=== PATIENT | male | born 1980 | race Caucasian/White ===

== ENCOUNTER 2024-10-24 07:25 | Inpatient (IN) | payer BC, SELFPAY ==
--- NOTE | ~2024-10-24 | CT_ITS ---
EXAMINATION: CT abdomen pelvis w con DATE: 10/24/2024 08:29 INDICATION: Right lower quadrant abdominal pain. TECHNIQUE: Computed tomography (CT) of the abdomen and pelvis was performed with 100 mL Omnipaque 350 intravenous contrast. Automated exposure control and iterative reconstruction technique were employe d. The dose-length product was 1324.05 mGy-cm. COMPARISON: CT abdomen and pelvis 10/08/2009 FINDINGS: The visualized portions of the lung bases demonstrate mild atelectasis. No pleural effusion . The heart size is normal. No pericardial effusion. There is diffuse hepatic steatosis. The gallblad grazyna, spleen, pancreas, adrenal glands, and right kidney are normal. There is a 9 mm cyst in left kidn ey. The prostate is mildly enlarged. There is a left inguinal hernia containing fat. There are scatte red diverticula in the colon. There is wall thickening of the sigmoid colon with surrounding fat stra nding, consistent with diverticulitis. There are no dilated loops of bowel. The appendix is normal. T here are no pathologically enlarged lymph nodes. There is a 5.8 x 1.2 x 0.9 cm perisigmoid abscess. V ertebral body heights are normal. There is a chronic compression fracture of L1. There is mild lumbar spondylosis. IMPRESSION: 1. Acute diverticulitis with small perisigmoid abscess. No perforation. Reviewed, dictated and finalized at location B.
[2024-10-24 07:28] VITALS: BP 184/104; PULSE 80; RESP 18; TEMP 36.6; O2SAT 97
--- OUTSIDE RECORDS SUMMARY | 2024-10-24 07:29 | XMS_ITS | Clinical Summary ---
Author Organization [facility] Address [address] [place] [id number] Care Team Providers Care Field Service Engineer Name Role Phone Unavailable Primary Care Provider Unavailabl e Social History Tobacco Use Types Packs/Day Years Used Date Smoking Tobacco: Never Assessed Sex and Gender Information Value Date Recorded Sex Assigned at Not on file Legal Sex Male 11:03 PM CDT Gender Identity Not on file Sexual Orientation Not on file Plan of Treatment Health Maintenance Due Date Last Done Comments Hepatitis C Virus (HCV) Screening 1981 TdaP Immunization 1981 Hepatitis B Immunization (1 of 3 - 19+ 3-dose series) 2000 Influenza Immunization (#1) 2024 SARS-COV-2 Immunization ( - 2023- season) 2024 Respiratory Syncytial Virus (RSV) Immunization (Adult) (1 - 1-dose 75+ series) 2056 Meningococcal Immunization (ACWY) Aged Out No longer eligible based on patient's age to complete this topic Pneumococcal Immunization Combined Aged Out No longer eligible based on patient's age to complete this topic Rotavirus Immunization Aged Out No lo nger eligible based on patient's age to complete this topic
[2024-10-24 07:49] LABS: Basophils Absolute Auto 0.1 K/mm3 (0.0-0.1); Basophils Percent Auto 0.4 % (0.2-1.2); Eosinophils Absolute Auto 0.1 K/mm3 (0-0.3); Eosinophils Percent Auto 0.4 % (0-4.4); Hematocrit 49.5 % (42.0-52.0); Hemoglobin 16.5 g/dL (14.0-18.0); Immature Granulocyte Absolute 0.06 K/mm3 (0.00-0.031); Immature Granulocyte Percent A 0.4 % (0-0.5); Lymphocytes Absolute Auto 1.18 K/mm3 (0.9-3.2); Lymphocytes Percent Auto 8.4 % (18.3-44.2); Mean Corpuscular HGB Conc 33.3 g/dl (32-36); Mean Corpuscular Hemoglobin 30.8 pg (26-34); Mean Corpuscular Volume 92.4 fl (80-100); Mean Platelet Volume 9.6 fl (7.4-10.4); Monocytes Absolute Auto 1.2 K/mm3 (0.1-0.6); Monocytes Percent Auto 8.3 % (2.6-8.5); Neutrophils Absolute Auto 11.5 K/mm3 (1.3-6.7); Neutrophils Percent Auto 82.1 % (45.5-73.1); Platelet Count Result 269 k/mm3 (150-375); Red Blood Count 5.36 M/mm3 (4.6-6.20)
[2024-10-24 07:55] LABS: Add Urine Microscopic? YES; Appearance Urine Clear (Clear); Bacteria Urine None Seen /hpf; Bilirubin Urine Negative (Negative); Blood Urine 1+ (Negative); Color Urine Yellow (Yellow); Glucose Urine UA Negative (Negative); Ketones Urine Negative (Negative); Leukocyte Esterase Ur Negative LEU/UL (Negative); Nitrate Urine Negative (Negative); Non Pathogenic Casts 0-2; Protein Urine Negative (Negative); Specific Grav Ur 1.016 (1.001-1.035); Squamous Epithelial Cell Urine None Seen /hpf (Few); WBC Urine 0-5 /hpf (0-3); pH Urine 7.5 (5.0-9.0)
--- OUTSIDE RECORDS SUMMARY | 2024-10-24 08:09 | XMS_ITS | Clinical Summary ---
Author Organization [facility] Address [address] [place] [id number] Care Team Providers Care Cosmetologist Apprentice Name Role Phone Unavailable Primary Care Provider [...]
[2024-10-24 08:10] LABS: Alanine Aminotransferase 45 U/L (6-50); Albumin Level 4.5 g/dL (3.5-5.1); Alkaline Phosphatase 66 U/L (38-126); Anion Gap 10 mmol/L (4-12); Aspartate Amino Transferase 24 U/L (17-59); Bilirubin,Total 1.9 mg/dL (0.2-1.3); Blood Urea Nitrogen 9 mg/dL (9-20); Calcium 9.7 mg/dL (8.4-10.2); Carbon Dioxide 24 mmol/L (22-30); Chloride 104 mmol/L (98-107); Estimated CRCL calculation 121 ml/min; Estimated Glomerular Filt Rate > 60; Glucose 127 mg/dL (65-110); Lipase 62 U/L (23-300); Potassium 4.4 mmol/L (3.4-5.0); Sodium 138 mmol/L (137-145)
[2024-10-24] MEDS: SODIUM CHLORIDE 0.9% IV 1,000 ML 999 ML IV CONT (08:32)
[2024-10-24] MEDS: ONDANSETRON INJ 4 MG/2 ML VIAL IV PUSH (08:33)
[2024-10-24] MEDS: HYDROmorphone HCL INJ (*CRX) 1 MG/ML SYR IV PUSH ×2 (08:33→19:56)
--- NOTE | 2024-10-24 09:06 | ED.GENADULT ---
HPI - General Adult General Chief complaint: Abdominal Pain Stated complaint: abdominal pain Time Seen by Provider: 10/24/24 07:38 History of Present Illness HPI narrative: This is a 43-year-old male with no medical history presenting for abdominal pain. Symptoms started 2 days ago. It is a sharp pain across the patient's lower abdomen worse in the right quadrant. It is associated with bloating and loose stools. Patient denies fevers chills nausea vomiting. No urinary symptoms. No chest pain or difficulty breathing. Related Data Allergies Allergy/AdvReac Type Severity Reaction Status Date / Time Penicillins Allergy Mild Rash Verified 10/24/24 08:32 [facility] Past Medical History Medical History Shingles Surgical History Surgical History History of vasectomy (~2010) Family History Family History Grandparent Cancer Social History Social History Smoking packs per day: 1 Smoking cigarettes per day: 20.0 Years smoked: 18 Smoking pack-years: 18.00 Smoking status: Former smoker Exam Narrative: APPEARANCE: No apparent distress. Head: atraumatic. EYES: EOMI, NOSE: Atraumatic NECK: Trachea midline RESPIRATORY: No increased rate of breathing, CTAB CARDIOVASCULAR: RRR, no peripheral edema ABDOMINAL: Tenderness to palpation diffusely but worse in the right lower quadrant MUSCULOSKELETAl: No obvious deformities NEURO: Alert. Moving 4/4 extremities SKIN:: Warm, dry. Normal color PSYCHIATRIC: Normal affect Course Vital Signs Vital signs: Vital Signs Temperature 97.8 F 10/24/24 07:28 Pulse Rate 80 10/24/24 07:28 Respiratory Rate 18 10/24/24 07:28 Blood Pressure 184/104 H 10/24/24 07:28 Pulse Oximetry 97 10/24/24 07:28 Oxygen Delivery Room Air 10/24/24 07:28 Temperature 97.8 F 10/24/24 07:28 Pulse Rate 80 10/24/24 07:28 Respiratory Rate 18 10/24/24 07:28 Blood Pressure 184/104 H 10/24/24 07:28 Pulse Oximetry 97 10/24/24 07:28 Oxygen Delivery Room Air 10/24/24 07:28 Medical Decision Making [facility] Narrative Medical decision making narrative: -Course: 43-year-old male presenting with abdominal pain. CT showed diverticulitis with a perisigmoid abscess. White count elevated at 14. Patient given fluid resuscitation and antibiotics. I discussed IR drainage with Dr. Singh. The abscess is long and thin and while he would attempt to drain it if required its unclear if it is needed at this point. surgery consulted. Patient will be admitted for further management. -DDX includes but is not limited to: Appendicitis, diverticulitis, colitis, cholecystitis -Co-morbidities complicating care: None Vital Signs Vital Signs: Vital Signs Temperature 97.8 F 10/24/24 07:28 Pulse Rate 80 10/24/24 07:28 Respiratory Rate 18 10/24/24 07:28 Blood Pressure 184/104 H 10/24/24 07:28 Pulse Oximetry 97 10/24/24 07:28 Oxygen Delivery Room Air 10/24/24 07:28 Temperature 97.8 F 10/24/24 07:28 Pulse Rate 80 10/24/24 07:28 Respiratory Rate 18 10/24/24 07:28 Blood Pressure 184/104 H 10/24/24 07:28 Pulse Oximetry 97 10/24/24 07:28 Oxygen Delivery Room Air 10/24/24 07:28 Lab Data 10/24/24 07:42 10/24/24 07:42 Labs: Lab Results 10/24/24 Range/Units 07:42 WBC 14.0 H (4.5-10.0) K/mm3 RBC 5.36 (4.6-6.20) M/mm3 Hgb 16.5 (14.0-18.0) g/dL Hct 49.5 (42.0-52.0) % MCV 92.4 (80-100) fl MCH 30.8 (26-34) pg MCHC 33.3 (32-36) g/dl RDW 13.0 (11.5-14.5) % Plt Count 269 (150-375) k/mm3 MPV 9.6 (7.4-10.4) fl Immature Gran % (Auto) 0.4 (0-0.5) % Neut % (Auto) 82.1 H (45.5-73.1) % Lymph % (Auto) 8.4 L (18.3-44.2) % [place] % (Auto) 8.3 (2.6-8.5) % Eos % (Auto) 0.4 (0-4.4) % Baso % (Auto) 0.4 (0.2-1.2) % Lymph # (Auto) 1.18 (0.9-3.2) K/mm3 [place] # (Auto) 1.2 H (0.1-0.6) K/mm3 Eos # (Auto) 0.1 (0-0.3) K/mm3 Baso # (Auto) 0.1 (0.0-0.1) K/mm3 Abs Immat Gran (auto) 0.06 H (0.00-0.031) K/mm3 Absolute Neuts (auto) 11.5 H (1.3-6.7) K/mm3 Absolute Nucleated RBC 0.000 (0.0-0.012) K/mm3 Nucleated RBC % 0.0 (0.0-0.2) % Sodium 138 (137-145) mmol/L Potassium 4.4 (3.4-5.0) mmol/L Chloride 104 (98-107) mmol/L Carbon Dioxide 24 (22-30) mmol/L Anion Gap 10 (4-12) mmol/L BUN 9 (9-20) mg/dL Creatinine 0.94 (0.7-1.3) mg/dL Estim Creat Clear Calc 121 ml/min Estimated GFR > 60 (59 - ) Glucose 127 H (65-110) mg/dL Calcium 9.7 (8.4-10.2) mg/dL Total Bilirubin 1.9 H (0.2-1.3) mg/dL AST 24 (17-59) U/L ALT 45 (6-50) U/L Alkaline Phosphatase 66 (38-126) U/L Total Protein 8.0 (6.3-8.2) g/dL Albumin 4.5 (3.5-5.1) g/dL Lipase 62 (23-300) U/L Urine Color Yellow (Yellow) Urine Appearance Clear (Clear) Urine pH 7.5 (5.0-9.0) Ur Specific [place] 1.016 (1.001-1.035) Urine Protein Negative (Negative) mg/dL Urine Glucose (UA) Negative (Negative) mg/dL Urine Ketones Negative (Negative) mg/dL Ur Blood (Man) 1+ H (Negative) Urine Nitrate Negative (Negative) Urine Bilirubin Negative (Negative) Urine Urobilinogen 1.0 (<2.0) mg/dL Leukocyte Esterase Rfl Negative (Negative) SOFY/UL Urine RBC 11-20 H (0-2) /hpf Urine WBC 0-5 (0-3) /hpf Ur Squamous Epith Cells None seen (Few) /hpf Urine Bacteria None seen /hpf Urine Casts 0-2 Discharge Plan Discharge Clinical Impression: Diverticulitis, Abscess of sigmoid colon due to diverticulitis Patient Disposition: Still a Patient Condition: Stable Patient Language: Brazilian Prescriptions: No Action cholecalciferol (vitamin D3) 1,250 mcg (50,000 unit) capsule 1,250 mcg PO WEEKLY Qty: 12 1RF Follow-up/Referrals: UNKNOWN,DOCTOR [Primary Care Provider] -
[2024-10-24 09:14] VITALS: BP 148/98; PULSE 72; RESP 15; O2SAT 98
[2024-10-24] MEDS: LACTATED RINGERS 1,000 ML 125 ML IV CONT ×2 (09:31→19:59)
[2024-10-24] MEDS: metroNIDAZOLE 500 MG/ISO 100ML 500 MG/100 ML BAG 100 MG IVPB ×2 (09:31→15:28)
[2024-10-24 10:43] VITALS: BP 160/100; PULSE 98; RESP 17; O2SAT 98
[2024-10-24 11:48] VITALS: BMI 34.7
--- NOTE | 2024-10-24 11:48 | ADMGEN ---
This patient, Bryant Gutierrez, was admitted to [facility] Surg Room 330-01. Patient/family oriented to hospital policies and general routines including ID bracelet, bed and alarms, visiting hours, pain management, procedures, bathroom and other care routines, personal items, smoking policy, room service/diet, and visiting hours. Information on how to activate the Rapid Response Team has been discussed. Patient/Family are encouraged to report perceived risks to care and to ask questions if they do not understand what they are told or what they should do.
[2024-10-24 12:00] VITALS: BP 154/96; PULSE 70; RESP 16; TEMP 36.4; O2SAT 97
--- NOTE | 2024-10-24 12:50 | P.CONGS_ITS ---
Assessment and Plan Assessment and plan (1) Abscess of sigmoid colon due to diverticulitis: Code(s): K57.20 - Diverticulitis of large intestine with perforation and abscess without bleeding Status: Acute Assessment and Plan: CT evidence of acute diverticulitis of the sigmoid colon with a very narrow perisigmoid abscess. He is diffusely tender across the lower abdomen, but with no peritoneal signs. No evidence of free intraperitoneal air or indication for urgent surgical intervention at this time. We would recommend to continue broad- spectrum IV antibiotics, bowel rest, and IV fluids. Discussed the risks of requiring percutaneous drainage if he develops more of an abscess that would need drained. We also discussed that if this disease process worsens while on antibiotics and he were to develop signs of sepsis or peritonitis, then surgical management would be considered, which comes with an increased risk of requiring an ostomy when done in the acute phase of diverticulitis. Will continue to follow with serial abdominal exams and labs. Plan I have discussed the patient's case and plan of care with Dr. Mercado. History of Present Illness Consult details Consult date: 10/24/24 Reason for consult: other (Diverticulitis with abscess) Requesting physician: Dusty Varghese MD Narrative: This is a 43-year-old man who we have been asked to see in surgical consultation for diverticulitis with abscess. He presented to the ED today with complaints of lower abdominal pain. He reports an onset of cramping pain 2 days ago. He woke up around 5:00 a.m. with generalized cramping abdominal pain. He he had a bowel movement with lower abdominal pain following. Denies any recent constipation or change in his bowels. Into the following day, he noticed more tenderness across his lower abdomen. This was aggravated by any movement or bending. He also reports bloating, but no nausea or vomiting. Denies fever or chills. His recently had a cholecystectomy and he was concerned he had an intra-abdominal process, therefore he came into the ED today due to his persistent abdominal tenderness. Workup in the [place] [id number] evidence of acute diverticulitis with a small perisigmoid abscess, no perforation. He was admitted in this setting and started on IV ceftriaxone and metronidazole. His pain improved with Dilaudid in the ED, but feels it is starting to return as the pain medication is wearing off. No nausea. He reports flatus and had a bowel movement yesterday that was a small amount and loose with some mucus. No history of diverticulitis. No previous colonoscopies. No previous abdominal surgery. Review of Systems 2 Review of Systems: All systems reviewed & are unremarkable except as noted in HPI and below [facility] Past Medical History Medical History Shingles Surgical History Surgical History History of vasectomy (~2010) Family History Family History Grandparent Cancer Social History Social History Smoking packs per day: 1 Smoking cigarettes per day: 20.0 Years smoked: 18 Smoking pack-years: 18.00 Smoking status: Former smoker Alcohol intake: current Drinks per week: 12 Substance use: never Substance use type: does not use Do You Feel Safe in your Home?: Yes Lack of Transportation: No Lack of Food: Never True Current Housing: I Have Housing Concerned About Future Housing: No Difficulty Paying Gas/Electric Bills: No Difficulty Paying for Meds: No Currently Unemployed: No Education: Associate Degree Difficulty w/ Childcare or Family Care: No Spiritual care concerns: No Meds Home Medications and Allergies Home Medications ?Medication ?Instructions ?Recorded ?Confirmed ?Type No Home Medications 10/24/24 10/24/24 History Allergies Allergy/AdvReac Type Severity Reaction Status Date / Time Penicillins Allergy Mild Rash Verified 10/24/24 08:32 Vital Signs Vital Signs - 24 hr 10/24/24 07:28 10/24/24 09:14 10/24/24 10:43 Temperature 97.8 F Pulse Rate 80 72 98 Respiratory Rate 18 15 17 Blood Pressure 184/104 H 148/98 H 160/100 H Pulse Oximetry 97 98 98 Oxygen Delivery Room Air 10/24/24 12:00 Temperature 97.5 F L Pulse Rate 70 Respiratory Rate 16 Blood Pressure 154/96 H Pulse Oximetry 97 Oxygen Delivery Exam 2 Const: General: comfortable and no acute distress Nutritional Appearance: o verweight Orientation/consciousness: patient oriented x3 HENMT: Head: normocephalic and atraumatic Ears: hearing grossly normal bilaterally Mouth: Yes moist mucous membranes Eyes: General: appearance normal, both eyes and all related structures P upils: Equal, round and reactive pupils present Neck: Neck: normal visual inspection and full ROM Resp: Effort & Inspection: no respiratory distress Auscultation: clear to auscultation bilaterally Cardio: Rate: regular rate Rhythm: regular rhythm Peripheral pulses: P eripheral pulses 2+ throughout GI: Inspection: non-distended, no scars and no visible herniation GI Palp: Yes Soft to palpation, Yes Tenderness to palpation present (GI) (Tenderness across the lower abdomen and right upper quadrant), No Guarding due to palpation present (GI), Yes No hepatosplenomegaly present and No Rebound tenderness present Percussion: Yes normal to percussion Auscultation: normal bowel sounds Skin: General skin exam: normal color Neuro: General: moves all extremities and no focal motor deficits Speech: n ormal speech Motor exam (neuro): 5/5 motor strength present throughout Extrem: General: normal to inspection and no edema Psych: Mental Status: mental status grossly normal Attitude: cooperative Insight: Good insight present (Psych) Judgement: Good judgement present (Psych) Results Labs 10/24/24 07:42 10/24/24 07:42 Labs: Abnormal lab results 10/24/24 Range/Units 07:42 WBC 14.0 H (4.5-10.0) K/mm3 Neut % (Auto) 82.1 H (45.5-73.1) % Lymph % (Auto) 8.4 L (18.3-44.2) % [place] # (Auto) 1.2 H (0.1-0.6) K/mm3 Abs Immat Gran (auto) 0.06 H (0.00-0.031) K/mm3 Absolute Neuts (auto) 11.5 H (1.3-6.7) K/mm3 Glucose 127 H (65-110) mg/dL Total Bilirubin 1.9 H (0.2-1.3) mg/dL Ur Blood (Man) 1+ H (Negative) Urine RBC 11-20 H (0-2) /hpf Diabetes panel 10/24/24 Range/Units 07:42 Sodium 138 (137-145) mmol/L Potassium 4.4 (3.4-5.0) mmol/L Chloride 104 (98-107) mmol/L Carbon Dioxide 24 (22-30) mmol/L BUN 9 (9-20) mg/dL Creatinine 0.94 (0.7-1.3) mg/dL Glucose 127 H (65-110) mg/dL Calcium 9.7 (8.4-10.2) mg/dL AST 24 (17-59) U/L ALT 45 (6-50) U/L Alkaline Phosphatase 66 (38-126) U/L Total Protein 8.0 (6.3-8.2) g/dL Albumin 4.5 (3.5-5.1) g/dL Calcium panel 10/24/24 Range/Units 07:42 Calcium 9.7 (8.4-10.2) mg/dL Albumin 4.5 (3.5-5.1) g/dL Pituitary panel 10/24/24 Range/Units 07:42 Sodium 138 (137-145) mmol/L Potassium 4.4 (3.4-5.0) mmol/L Chloride 104 (98-107) mmol/L Carbon Dioxide 24 (22-30) mmol/L BUN 9 (9-20) mg/dL Creatinine 0.94 (0.7-1.3) mg/dL Glucose 127 H (65-110) mg/dL Calcium 9.7 (8.4-10.2) mg/dL Adrenal panel 10/24/24 Range/Units 07:42 Sodium 138 (137-145) mmol/L Potassium 4.4 (3.4-5.0) mmol/L Chloride 104 (98-107) mmol/L Carbon Dioxide 24 (22-30) mmol/L BUN 9 (9-20) mg/dL Creatinine 0.94 (0.7-1.3) mg/dL Glucose 127 H (65-110) mg/dL Calcium 9.7 (8.4-10.2) mg/dL Total Bilirubin 1.9 H (0.2-1.3) mg/dL AST 24 (17-59) U/L ALT 45 (6-50) U/L Alkaline Phosphatase 66 (38-126) U/L Total Protein 8.0 (6.3-8.2) g/dL Albumin 4.5 (3.5-5.1) g/dL All other labs normal. Imaging Additional studies: ITS Impressions Abdomen/Pelvis CT 10/24/24 08:34 IMPRESSION: 1. Acute diverticulitis with small perisigmoid abscess. No perforation.
--- NOTE | 2024-10-24 13:20 | PM.IMHP ---
H&P: HPI History of Present Illness Date/Time: 10/24/24 13:20 Chief Complaint: Abdominal pain Narrative: 43-year-old no prior medical history presents the hospital with abdominal pain. His lab work in the ED shows leukocytosis of 14.0, total bilirubin of 1.9, UA noninfective. CT abdomen shows acute diverticulitis with small perisigmoid abscess. General surgery was consulted Review of Systems Review of Systems: 12 systems were reviewed and are negative except for as per HPI. [facility] Past Medical History Medical History Shingles Surgical History Surgical History History of vasectomy (~2010) Family History Family History Grandparent Cancer Social History Social History Smoking packs per day: 1 Smoking cigarettes per day: 20.0 Years smoked: 18 Smoking pack-years: 18.00 Smoking status: Former smoker Alcohol intake: current Drinks per week: 12 Substance use: never Substance use type: does not use Do You Feel Safe in your Home?: Yes Lack of Transportation: No Lack of Food: Never True Current Housing: I Have Housing Concerned About Future Housing: No Difficulty Paying Gas/Electric Bills: No Difficulty Paying for Meds: No Currently Unemployed: No Education: Associate Degree Difficulty w/ Childcare or Family Care: No Spiritual care concerns: No Meds Home Medications and Allergies Home Medications ?Medication ?Instructions ?Recorded ?Confirmed ?Type No Home Medications 10/24/24 10/24/24 History Allergies Allergy/AdvReac Type Severity Reaction Status Date / Time Penicillins Allergy Mild Rash Verified 10/24/24 08:32 Vital Signs Vital Signs - 24 hr 10/24/24 07:28 10/24/24 09:14 10/24/24 10:43 Temperature 97.8 F Pulse Rate 80 72 98 Respiratory Rate 18 15 17 Blood Pressure 184/104 H 148/98 H 160/100 H Pulse Oximetry 97 98 98 Oxygen Delivery Room Air 10/24/24 12:00 Temperature 97.5 F L Pulse Rate 70 Respiratory Rate 16 Blood Pressure 154/96 H Pulse Oximetry 97 Oxygen Delivery Exam Narrative: General: well appearing, appears stated age. HEENT: normocephalic, atraumatic. Mucous membranes moist. EOMI, PERRLA, bilateral sclera anicteric, no conjunctival injection. Neck supple without JVD, lymphadenopathy, or bruit. Respiratory: clear to ascultation bilaterally. No rales/rhonic/wheezes. Cardiovascular: Regular rate and rhythm, normal S1-S2 upon ascultation. No murmurs, rubs, or clicks. PMI is nondisplaced, capillary refill less than 3 second. Abdomen: Soft, round, no pulsatile masses, nondistended and nontender. No rebound, no guarding. No CVA tenderness, no hepatosplenomegaly. Bowel sounds present to all four quadrants. No high pitch or tinkling sounds, resonant to percussion. Extremities: No cyanosis, clubbing, or edema present. Pulses are palpable 2/2. Active ROM to all four extremities. Neuro: Alert and orientated x 4. PERRLA. Cranial nerves 2-12 intact without focal deficit. Skin: Warm, dry, and intact, without rash, erythema, or lesion. Psych: pleasant, cooperative, normal speech, normal affect, no hallucinations, no dysarthia H&P: Results Labs Labs: Short CBC 10/24/24 Range/Units 07:42 WBC 14.0 H (4.5-10.0) K/mm3 Hgb 16.5 (14.0-18.0) g/dL Hct 49.5 (42.0-52.0) % Plt Count 269 (150-375) k/mm3 BMP 10/24/24 07:42 Sodium 138 Potassium 4.4 Chloride 104 Carbon Dioxide 24 BUN 9 Creatinine 0.94 Glucose 127 H Calcium 9.7 Liver Function 10/24/24 Range/Units 07:42 Total Bilirubin 1.9 H (0.2-1.3) mg/dL AST 24 (17-59) U/L ALT 45 (6-50) U/L Alkaline Phosphatase 66 (38-126) U/L Albumin 4.5 (3.5-5.1) g/dL Urine 10/24/24 Range/Units 07:42 Urine Color Yellow (Yellow) Urine Appearance Clear (Clear) Urine pH 7.5 (5.0-9.0) Ur Specific [place] 1.016 (1.001-1.035) Urine Protein Negative (Negative) mg/dL Urine Glucose (UA) Negative (Negative) mg/dL Assessment and Plan Assessment and plan (1) Abscess of sigmoid colon due to diverticulitis: Code(s): K57.20 - Diverticulitis of large intestine with perforation and abscess without bleeding Status: Acute Assessment and Plan: Surgery consulted NPO IV Rocephin and Flagyl IV pain medication (2) Leukocytosis: Code(s): D72.829 - Elevated white blood cell count, unspecified Status: Acute Assessment and Plan: Secondary to above Daily CBC Quality VTE Prophylaxis VTE prophylaxis: mechanical ordered
[2024-10-24 13:33] VITALS: BP 152/105; PULSE 70; RESP 16; TEMP 36.3; O2SAT 97
[2024-10-24] MEDS: HYDROmorphone HCL INJ (*CRX) 1 MG/ML SYR 0.5 MG IV PUSH (15:28)
--- NOTE | 2024-10-24 19:44 | P.HP_ITS ---
H&P: HPI History of Present Illness Date/Time: 10/24/24 19:44 Chief Complaint: Abdominal pain Narrative: 43-year-old male with no past medical history presents the hospital with abdominal pain. In the ED has leukocytosis of 14.0, total bili of 1.9, UA noninfective, abdominal CT shows Acute diverticulitis with small perisigmoid abscess. Surgery has been consulted. Review of Systems Review of Systems: 12 systems were reviewed and are negativ e except for as per HPI. [facility] Past Medical History Medical History Shingles Surgical History Surgical History History of vasectomy (~2010) Family History Family History Grandparent Cancer Social History Social History Smoking packs per day: 1 Smoking cigarettes per day: 20.0 Years smoked: 18 Smoking pack-years: 18.00 Smoking status: Former smoker Alcohol intake: current Drinks per week: 12 Substance use: never Substance use type: does not use Do You Feel Safe in your Home?: Yes Lack of Transportation: No Lack of Food: Never True Current Housing: I Have Housing Concerned About Future Housing: No Difficulty Paying Gas/Electric Bills: No Difficulty Paying for Meds: No Currently Unemployed: No Education: Associate Degree Difficulty w/ Childcare or Family Care: No Spiritual care concerns: No Meds Home Medications and Allergies Home Medications ?Medication ?Instructions ?Recorded ?Confirmed ?Type No Home Medications 10/24/24 10/24/24 History Allergies Allergy/AdvReac Type Severity Reaction Status Date / Time Penicillins Allergy Mild Rash Verified 10/24/24 08:32 Vital Signs Vital Signs - 24 hr 10/24/24 07:28 10/24/24 09:14 10/24/24 10:43 Temperature 97.8 F Pulse Rate 80 72 98 Respiratory Rate 18 15 17 Blood Pressure 184/104 H 148/98 H 160/100 H Pulse Oximetry 97 98 98 Oxygen Delivery Room Air 10/24/24 12:00 10/24/24 13:33 Temperature 97.5 F L 97.3 F L Pulse Rate 70 70 Respiratory Rate 16 16 Blood Pressure 154/96 H 152/105 H Pulse Oximetry 97 97 Oxygen Delivery Exam Narrative: General: well appearing, appears stated age. HEENT: normocephalic, atraumatic. Mucous membranes moist. EOMI, PERRLA, bilateral sclera anicteric, no conjunctival injection. Neck supple without JVD, lymphadenopathy, or bruit. Respiratory: clear to ascultation bilaterally. No rales/rhonic/wheezes. Cardiovascular: Regular rate and rhythm, normal S1-S2 upon ascultation. No murmurs, rubs, or clicks. PMI is nondisplaced, capillary refill less than 3 second. Abdomen: Soft, round, no pulsatile masses, nondistended and nontender. No rebound, no guarding. No CVA tenderness, no hepatosplenomegaly. Bowel sounds present to all four quadrants. No high pitch or tinkling sounds, resonant to percussion. Extremities: No cyanosis, clubbing, or edema present. Pulses are palpable 2/2. Active ROM to all four extremities. Neuro: Alert and orientated x 4. PERRLA. Cranial nerves 2-12 intact without focal deficit. Skin: Warm, dry, and intact, without rash, erythema, or lesion. Psych: pleasant, cooperative, normal speech, normal affect, no hallucinations, no dysarthia H&P: Results Labs Labs: Short CBC 10/24/24 Range/Units 07:42 WBC 14.0 H (4.5-10.0) K/mm3 Hgb 16.5 (14.0-18.0) g/dL Hct 49.5 (42.0-52.0) % Plt Count 269 (150-375) k/mm3 BMP 10/24/24 07:42 Sodium 138 Potassium 4.4 Chloride 104 Carbon Dioxide 24 BUN 9 Creatinine 0.94 Glucose 127 H Calcium 9.7 Liver Function 10/24/24 Range/Units 07:42 Total Bilirubin 1.9 H (0.2-1.3) mg/dL AST 24 (17-59) U/L ALT 45 (6-50) U/L Alkaline Phosphatase 66 (38-126) U/L Albumin 4.5 (3.5-5.1) g/dL Urine 10/24/24 Range/Units 07:42 Urine Color Yellow (Yellow) Urine Appearance Clear (Clear) Urine pH 7.5 (5.0-9.0) Ur Specific [place] 1.016 (1.001-1.035) Urine Protein Negative (Negative) mg/dL Urine Glucose (UA) Negative (Negative) mg/dL Assessment and Plan Assessment and plan (1) Abscess of sigmoid colon due to diverticulitis: Code(s): K57.20 - Diverticulitis of large intestine with perforation and abscess without bleeding Status: Acute Assessment and Plan: General surgery consulted Patient started on Rocephin and Flagyl NPO IV fluids Dilaudid pain control Quality VTE Prophylaxis VTE prophylaxis: mechanical ordered
--- NOTE | 2024-10-24 20:45 | PM.IMHP ---
H&P: HPI History of Present Illness Date/Time: 10/24/24 20:45 Chief Complaint: Abdominal pain Narrative: 43-year-old male with no past medical history presents the hospital with abdominal pain. Patient states that he has never had this pain before. He states that he has severe pain with movement or with coughing. He states that it is in his lower abdomen. Patient denies fevers chills nausea or vomiting. In the ED has leukocytosis of 14.0, total bili of 1.9, UA noninfective, abdominal CT shows Acute diverticulitis with small perisigmoid abscess. Surgery has been consulted. Review of Systems Review of Systems: 12 systems were reviewed and are negative except for as per HPI. FORMERLY [facility] Past Medical History Medical History Shingles Surgical History Surgical History History of vasectomy (~2010) Family History Family History Grandparent Cancer Social History Social History Smoking packs per day: 1 Smoking cigarettes per day: 20.0 Years smoked: 18 Smoking pack-years: 18.00 Smoking status: Former smoker Alcohol intake: current Drinks per week: 12 Substance use: never Substance use type: does not use Do You Feel Safe in your Home?: Yes Lack of Transportation: No Lack of Food: Never True Current Housing: I Have Housing Concerned About Future Housing: No Difficulty Paying Gas/Electric Bills: No Difficulty Paying for Meds: No Currently Unemployed: No Education: Associate Degree Difficulty w/ Childcare or Family Care: No Spiritual care concerns: No Meds Home Medications and Allergies Home Medications ?Medication ?Instructions ?Recorded ?Confirmed ?Type No Home Medications 10/24/24 10/24/24 History Allergies Allergy/AdvReac Type Severity Reaction Status Date / Time Penicillins Allergy Mild Rash Verified 10/24/24 08:32 Vital Signs Vital Signs - 24 hr 10/24/24 07:28 10/24/24 09:14 10/24/24 10:43 Temperature 97.8 F Pulse Rate 80 72 98 Respiratory Rate 18 15 17 Blood Pressure 184/104 H 148/98 H 160/100 H Pulse Oximetry 97 98 98 Oxygen Delivery Room Air 10/24/24 12:00 10/24/24 13:33 Temperature 97.5 F L 97.3 F L Pulse Rate 70 70 Respiratory Rate 16 16 Blood Pressure 154/96 H 152/105 H Pulse Oximetry 97 97 Oxygen Delivery Exam Narrative: General: well appearing, appears stated age. HEENT: normocephalic, atraumatic. Mucous membranes moist. EOMI, PERRLA, bilateral sclera anicteric, no conjunctival injection. Neck supple without JVD, lymphadenopathy, or bruit. Respiratory: clear to ascultation bilaterally. No rales/rhonic/wheezes. Cardiovascular: Regular rate and rhythm, normal S1-S2 upon ascultation. No murmurs, rubs, or clicks. PMI is nondisplaced, capillary refill less than 3 second. Abdomen: Soft, round, no pulsatile masses, nondistended and nontender. No rebound, no guarding. No CVA tenderness, no hepatosplenomegaly. Bowel sounds present to all four quadrants. No high pitch or tinkling sounds, resonant to percussion. Mildly tender on palpation. Extremities: No cyanosis, clubbing, or edema present. Pulses are palpable 2/2. Active ROM to all four extremities. Neuro: Alert and orientated x 4. PERRLA. Cranial nerves 2-12 intact without focal deficit. Skin: Warm, dry, and intact, without rash, erythema, or lesion. Psych: pleasant, cooperative, normal speech, normal affect, no hallucinations, no dysarthia H&P: Results Labs Labs: Short CBC 10/24/24 Range/Units 07:42 WBC 14.0 H (4.5-10.0) K/mm3 Hgb 16.5 (14.0-18.0) g/dL Hct 49.5 (42.0-52.0) % Plt Count 269 (150-375) k/mm3 [facility] 10/24/24 07:42 Sodium 138 Potassium 4.4 Chloride 104 Carbon Dioxide 24 BUN 9 Creatinine 0.94 Glucose 127 H Calcium 9.7 Liver Function 10/24/24 Range/Units 07:42 Total Bilirubin 1.9 H (0.2-1.3) mg/dL AST 24 (17-59) U/L ALT 45 (6-50) U/L Alkaline Phosphatase 66 (38-126) U/L Albumin 4.5 (3.5-5.1) g/dL Urine 10/24/24 Range/Units 07:42 Urine Color Yellow (Yellow) Urine Appearance Clear (Clear) Urine pH 7.5 (5.0-9.0) Ur Specific [place] 1.016 (1.001-1.035) Urine Protein Negative (Negative) mg/dL Urine Glucose (UA) Negative (Negative) mg/dL Assessment and Plan Assessment and plan (1) Diverticulitis: Code(s): K57.92 - Diverticulitis of intestine, part unspecified, without perforation or abscess without bleeding Status: Acute Assessment and Plan: With abscess General surgery consulted Patient started on Rocephin and Flagyl NPO IV fluids Dilaudid pain control (2) Leukocytosis: Code(s): D72.829 - Elevated white blood cell count, unspecified Status: Acute Assessment and Plan: Secondary to above BMP in the morning Quality VTE Prophylaxis VTE prophylaxis: mechanical ordered Hospitalist [facility] Advance Care Plan I have confirmed that the patient's Advanced Care Plan is present, code status is documented, or surrogate decision maker is listed in patient medical record.: Yes Medication Reconciliation I have utilized all available resources to obtain, update and review the patients current medications (includes all prescriptions, OTC, herbals, cannabis, and nutritional supplements).: Yes
[2024-10-24 21:34] VITALS: BP 157/96; PULSE 74; RESP 20; TEMP 36.6; O2SAT 96
[2024-10-25] MEDS: metroNIDAZOLE 500 MG/ISO 100ML 500 MG/100 ML BAG 100 MG IVPB ×4 (00:37→23:51)
[2024-10-25] MEDS: HYDROmorphone HCL INJ (*CRX) 1 MG/ML SYR IV PUSH (00:39)
[2024-10-25] MEDS: LACTATED RINGERS 1,000 ML 125 ML IV CONT ×2 (05:00→17:05)
[2024-10-25 06:00] VITALS: BP 160/95; PULSE 71; RESP 20; TEMP 36.9; O2SAT 98
[2024-10-25 06:57] LABS: Hematocrit 51.1 % (42.0-52.0); Hemoglobin 16.8 g/dL (14.0-18.0); Mean Corpuscular HGB Conc 32.9 g/dl (32-36); Mean Corpuscular Hemoglobin 30.7 pg (26-34); Mean Corpuscular Volume 93.2 fl (80-100); Mean Platelet Volume 9.4 fl (7.4-10.4); Platelet Count Result 302 k/mm3 (150-375); Red Blood Count 5.48 M/mm3 (4.6-6.20); Red Cell Distribution Width 12.9 % (11.5-14.5); White Blood Count 11.3 K/mm3 (4.5-10.0)
[2024-10-25 07:13] LABS: Anion Gap 11 mmol/L (4-12); Blood Urea Nitrogen 9 mg/dL (9-20); CRP 8.7 mg/dL (<1.0); Calcium 9.4 mg/dL (8.4-10.2); Carbon Dioxide 27 mmol/L (22-30); Chloride 98 mmol/L (98-107); Estimated CRCL calculation 123 ml/min; Estimated Glomerular Filt Rate > 60; Glucose 108 mg/dL (65-110); Potassium 3.7 mmol/L (3.4-5.0); Sodium 136 mmol/L (137-145)
[2024-10-25] MEDS: IBUPROFEN IV 800 MG/200 ML 800 MG/200 ML BAG 400 MG IVPB (08:11)
--- NOTE | 2024-10-25 10:39 | P.PNGS_ITS ---
Progress Note: A&P Assessment and Plan (1) Abscess of sigmoid colon due to diverticulitis: Code(s): K57.20 - Diverticulitis of large intestine with perforation and abscess without bleeding Status: Acute Assessment and Plan: * Clinically improving, WBC down to 11,000. Abdominal pain and tenderness improving. * Will advance to clear liquid diet * Continue IV antibiotics Plan I have discussed the patient's case and plan of care with Dr. Mercado. Subjective Subjective Date/Time Seen: 10/25/24 10:39 Patient reports: no new complaints, feels better, pain is less, flatus, no bowel movement and afebrile Interval history: Patient feeling better today. Denies any abdominal pain this morning, but still has tenderness across his lower abdomen when getting up out of bed. No nausea or vomiting. Passing flatus and had smears after this, but no bowel movement since admission. Feels hungry. Exam Const: General: comfortable and no acute distress Orientation/consciousness: patient oriented x3 GI: Inspection: non-distended GI Palp: Yes Soft to palpation (but slight fullness felt in the LLQ), Yes Tenderness to palpation present (GI) (LLQ), No Guarding due to palpation present (GI) and No Rebound tenderness present Auscultation: normal bowel sounds Objective Data Vital Signs Vital Signs: Vital Signs - 24 hr 10/24/24 10:43 10/24/24 12:00 10/24/24 13:33 Temperature 97.5 F L 97.3 F L Pulse Rate 98 70 70 Respiratory Rate 17 16 16 Blood Pressure 160/100 H 154/96 H 152/105 H Pulse Oximetry 98 97 97 10/24/24 21:34 10/25/24 06:00 Temperature 97.8 F 98.4 F Pulse Rate 74 71 Respiratory Rate 20 20 Blood Pressure 157/96 H 160/95 H Pulse Oximetry 96 98 Intake/Output Intake/Output: Intake & Output 10/23/24 10/23/24 10/24/24 10/25/24 00:59 23:59 23:59 23:59 Intake Total 2250 1100 Balance 2250 1100 Meds/Results Medications: Active Medications Generic Name Dose Route Start Last Admin Trade Name Freq PRN Reason Stop Dose Admin Hydromorphone HCl 0.5 mg 10/24/24 12:52 10/24/24 15:28 Hydromorphone Hcl Inj (*Crx) 1 Mg/Ml Syr IV PUSH 0.5 mg Q2H PRN Administration Pain Rated 4-6 Hydromorphone HCl 1 mg 10/24/24 12:52 10/25/24 00:39 Hydromorphone Hcl Inj (*Crx) 1 Mg/Ml Syr IV PUSH 1 mg Q3H PRN Administration Pain Rated 7-10 Ceftriaxone Sodium 1 gm in 50 mls @ 100 mls/hr 10/25/24 09:00 10/25/24 08:16 Rocephin 1 Gm/Ns 50 Ml IVPB 100 mls/hr Q24H TAWANA Administration Metronidazole 500 mg in 100 mls @ 100 mls/hr 10/24/24 16:00 10/25/24 08:17 Flagyl 500 Mg/Iso Soln 100 Ml IVPB 100 mls/hr Q8H TAWANA Administration Lactated Ringer's 1,000 mls @ 125 mls/hr 10/24/24 09:20 10/25/24 05:00 Lr - Lactated Ringers Iv IV CONT 125 mls/hr .Q8H TAWANA Administration Ibuprofen 800 mg in 200 mls @ 400 mls/hr 10/24/24 12:52 10/25/24 08:11 Caldolor 800 Mg/200 Ml IVPB 400 mls/hr Q6H PRN Administration Pain Rated 1-3 Ondansetron HCl 4 mg 10/24/24 12:53 Ondansetron Inj 4 Mg/2 Ml Vial IV PUSH Q6H PRN Nausea And Vomiting Radiology Results: ITS Impressions Abdomen/Pelvis CT 10/24/24 08:34 IMPRESSION: 1. Acute diverticulitis with small perisigmoid abscess. No perforation. Labs Labs: Laboratory Results - last 24 hr 10/25/24 06:32 WBC 11.3 H RBC 5.48 Hgb 16.8 Hct 51.1 MCV 93.2 MCH 30.7 MCHC 32.9 RDW 12.9 Plt Count 302 MPV 9.4 Sodium 136 L Potassium 3.7 Chloride 98 Carbon Dioxide 27 Anion Gap 11 BUN 9 Creatinine 0.93 Estim Creat Clear Calc 123 Estimated GFR > 60 Glucose 108 Calcium 9.4 C-Reactive Protein 8.7 H
[2024-10-25 14:00] VITALS: BP 140/70; PULSE 70; RESP 20; TEMP 36.4; O2SAT 98
--- NOTE | 2024-10-25 15:20 | P.PNIM_ITS ---
Progress Note: A&P Assessment and Plan (1) Abscess of sigmoid colon due to diverticulitis: Code(s): K57.20 - Diverticulitis of large intestine with perforation and abscess without bleeding Status: Acute Assessment and Plan: * CT ABD with diverticulitis and perisigmoid abscess without perforation * Surgery consulted * advanced to liquid diet * Conservative management * WBC improved from 14-11 * Currently on Rocephin and Flagyl * Replenish electrolytes as needed * Pain management Plan Code status: Full code per patient DVT prophylaxis: SCD Stress ulcer prophylaxis: NA PT/OT notes: Ambulatory Disposition: Patient admitted to the medical unit for treatment of diverticulitis with abscess will continue with IV aBX plan for discharge to home when medically stable on PO ABX. Time Spent With Patient Time with patient: 15 - 25 minutes Subjective Date/time seen: 10/25/24 15:20 Interval history: Patient is a 43-year-old male admitted to the medical unit for further treatment diverticulitis with abscess of the Perisigmoid colon without perforation. 10/25/2024: Assumed Care Patient in no acute distress reports minimal ABD pain, small BM, and flatulence. WBC improving and remained afebrile. Review of Systems Review of Systems: 12 systems were reviewed and are negativ e except for as per HPI. All systems reviewed & are unremarkable except as noted in HPI and below Exam Const: General: comfortable HENMT: Mouth: Yes moist mucous membranes Eyes: Pupils: Equal, round and reactive pupils present Neck: Neck: supple and no JVD Resp: Effort & Inspection: normal respiratory effort Cardio: Rate: regular rate GI: GI Palp: Yes Soft to palpation and Yes Tenderness to palpation present (GI) (Mild) Skin: General skin exam: normal color Neuro: Speech: normal speech Extrem: General: normal to inspection Psych: Mental Status: mental status grossly normal Objective Data Vital Signs Vital Signs: Vital Signs - 24 hr 10/24/24 21:34 10/25/24 06:00 10/25/24 08:00 Temperature 97.8 F 98.4 F Pulse Rate 74 71 Respiratory Rate 20 20 Blood Pressure 157/96 H 160/95 H Pulse Oximetry 96 98 Oxygen Delivery Room Air 10/25/24 14:00 Temperature 97.6 F Pulse Rate 70 Respiratory Rate 20 Blood Pressure 140/70 Pulse Oximetry 98 Oxygen Delivery Intake/Output Intake/Output: Intake & Output 10/23/24 10/23/24 10/24/24 10/25/24 00:59 23:59 23:59 23:59 Intake Total 2250 1580 Balance 2250 1580 Meds/Results Medications: Active Medications Generic Name Dose Route Start Last Admin Trade Name Freq PRN Reason Stop Dose Admin Hydromorphone HCl 0.5 mg 10/24/24 12:52 10/24/24 15:28 Hydromorphone Hcl Inj (*Crx) 1 Mg/Ml Syr IV PUSH 0.5 mg Q2H PRN Administration Pain Rated 4-6 Hydromorphone HCl 1 mg 10/24/24 12:52 10/25/24 00:39 Hydromorphone Hcl Inj (*Crx) 1 Mg/Ml Syr IV PUSH 1 mg Q3H PRN Administration Pain Rated 7-10 Ceftriaxone Sodium 1 gm in 50 mls @ 100 mls/hr 10/25/24 09:00 10/25/24 08:16 Rocephin 1 Gm/Ns 50 Ml IVPB 100 mls/hr Q24H TAWANA Administration Metronidazole 500 mg in 100 mls @ 100 mls/hr 10/24/24 16:00 10/25/24 08:17 Flagyl 500 Mg/Iso Soln 100 Ml IVPB 100 mls/hr Q8H TAWANA Administration Lactated Ringer's 1,000 mls @ 70 mls/hr 10/24/24 09:20 10/25/24 05:00 Lr - Lactated Ringers Iv IV CONT 125 mls/hr .[id number] TAWANA Administration Ibuprofen 800 mg in 200 mls @ 400 mls/hr 10/24/24 12:52 10/25/24 08:11 Caldolor 800 Mg/200 Ml IVPB 400 mls/hr Q6H PRN Administration Pain Rated 1-3 Ondansetron HCl 4 mg 10/24/24 12:53 Ondansetron Inj 4 Mg/2 Ml Vial IV PUSH Q6H PRN Nausea And Vomiting Radiology Results: ITS Impressions Abdomen/Pelvis CT 10/24/24 08:34 IMPRESSION: 1. Acute diverticulitis with small perisigmoid abscess. No perforation. Labs Labs: Laboratory Results - last 24 hr 10/25/24 06:32 WBC 11.3 H RBC 5.48 Hgb 16.8 Hct 51.1 MCV 93.2 MCH 30.7 MCHC 32.9 RDW 12.9 Plt Count 302 MPV 9.4 Sodium 136 L Potassium 3.7 Chloride 98 Carbon Dioxide 27 Anion Gap 11 BUN 9 Creatinine 0.93 Estim Creat Clear Calc 123 Estimated GFR > 60 Glucose 108 Calcium 9.4 C-Reactive Protein 8.7 H Quality VTE Prophylaxis VTE prophylaxis: mechanical ordered -Patient's previous records reviewed on admission -ER notes reviewed in detail on admission -discussed all findings and current treatment plan with patient/Family/POA -Consultations reviewed for recommendations -Patient's disposition for safe discharge discussed with welfare case worker Dictation performed by [employer] direct speech recognition software, therefore chief wellness officer variants and typographical errors may occur. Hospitalist [facility] Advance Care Plan I have confirmed that the patient's Advanced Care Plan is present, code status is documented, or surrogate decision maker is listed in patient medical record.: Yes Medication Reconciliation I have utilized all available resources to obtain, update and review the patients current medications (includes all prescriptions, OTC, herbals, cannabis, and nutritional supplements).: Yes The patient is not eligible for med reconciliation; the patient is in a emergent medical situation where delaying treatment would jeopardize the patients health.: No
[2024-10-25 22:40] VITALS: BP 148/100; PULSE 64; RESP 18; O2SAT 98
[2024-10-26 05:05] VITALS: BP 154/94; PULSE 71; RESP 16; TEMP 36.6; O2SAT 96
[2024-10-26 07:11] LABS: Hematocrit 52.1 % (42.0-52.0); Hemoglobin 17.3 g/dL (14.0-18.0); Mean Corpuscular HGB Conc 33.2 g/dl (32-36); Mean Corpuscular Hemoglobin 30.9 pg (26-34); Mean Platelet Volume 9.2 fl (7.4-10.4); Platelet Count Result 321 k/mm3 (150-375); Red Cell Distribution Width 12.6 % (11.5-14.5); White Blood Count 7.6 K/mm3 (4.5-10.0)
[2024-10-26] MEDS: metroNIDAZOLE 500 MG/ISO 100ML 500 MG/100 ML BAG 100 MG IVPB ×2 (08:05→16:37)
[2024-10-26 08:55] LABS: Alanine Aminotransferase 49 U/L (6-50); Albumin Level 4.3 g/dL (3.5-5.1); Alkaline Phosphatase 55 U/L (38-126); Anion Gap 11 mmol/L (4-12); Aspartate Amino Transferase 40 U/L (17-59); Bilirubin,Total 1.5 mg/dL (0.2-1.3); Blood Urea Nitrogen 9 mg/dL (9-20); Calcium 9.3 mg/dL (8.4-10.2); Carbon Dioxide 25 mmol/L (22-30); Chloride 101 mmol/L (98-107); Estimated CRCL calculation 131 ml/min; Estimated Glomerular Filt Rate > 60; Glucose 168 mg/dL (65-110); Potassium 3.9 mmol/L (3.4-5.0); Sodium 137 mmol/L (137-145)
[2024-10-26] MEDS: LACTATED RINGERS 1,000 ML 70 ML IV CONT (10:35)
--- NOTE | 2024-10-26 11:08 | P.PNGS_ITS ---
Progress Note: A&P Assessment and Plan (1) Abscess of sigmoid colon due to diverticulitis: Code(s): K57.20 - Diverticulitis of large intestine with perforation and abscess without bleeding Status: Acute Assessment and Plan: * Continues to clinically improve. WBC normalized. No abdominal pain or tenderness today. * Will advance to full liquids for lunch, and advance to a low fiber diet for dinner. * Continue IV antibiotics. * Okay to discharge on oral antibiotics once tolerating a solid diet. He will need to continue low fiber diet x 2 weeks. Plan I have discussed the patient's case and plan of care with Dr. Mercado. Subjective Subjective Date/Time Seen: 10/26/24 11:09 Patient reports: no new complaints, feels better, tolerating liquids well, flatus, bowel movement and afebrile Interval history: Patient denies abdominal pain. He has not had any pain medication since ibuprofen at 8:00 a.m. yesterday. No nausea or vomiting. Tolerating clear liquids well. Exam Const: General: comfortable and no acute distress GI: Inspection: non-distended GI Palp: Yes Soft to palpation, No Tenderness to palpation present (GI), No Guarding due to palpation present (GI) and No Rebound tenderness present Auscultation: normal bowel sounds Objective Data Vital Signs Vital Signs: Vital Signs - 24 hr 10/25/24 14:00 10/25/24 22:40 10/26/24 05:05 Temperature 97.6 F 97.8 F Pulse Rate 70 64 71 Respiratory Rate 20 18 16 Blood Pressure 140/70 148/100 H 154/94 H Pulse Oximetry 98 98 96 Oxygen Delivery 10/26/24 08:00 Temperature Pulse Rate Respiratory Rate Blood Pressure Pulse Oximetry Oxygen Delivery Room Air Intake/Output Intake/Output: Intake & Output 10/23/24 10/24/24 10/25/24 10/26/24 23:59 23:59 23:59 23:59 Intake Total 2250 4179.6 1210.4 Balance 2250 4179.6 1210.4 Meds/Results Medications: Active Medications Generic Name Dose Route Start Last Admin Trade Name Freq PRN Reason Stop Dose Admin Hydromorphone HCl 0.5 mg 10/24/24 12:52 10/24/24 15:28 Hydromorphone Hcl Inj (*Crx) 1 Mg/Ml Syr IV PUSH 0.5 mg Q2H PRN Administration Pain Rated 4-6 Hydromorphone HCl 1 mg 10/24/24 12:52 10/25/24 00:39 Hydromorphone Hcl Inj (*Crx) 1 Mg/Ml Syr IV PUSH 1 mg Q3H PRN Administration Pain Rated 7-10 Ceftriaxone Sodium 1 gm in 50 mls @ 100 mls/hr 10/25/24 09:00 10/26/24 08:03 Rocephin 1 Gm/Ns 50 Ml IVPB 100 mls/hr Q24H TAWANA Administration Metronidazole 500 mg in 100 mls @ 100 mls/hr 10/24/24 16:00 10/26/24 08:05 Flagyl 500 Mg/Iso Soln 100 Ml IVPB 100 mls/hr Q8H TAWANA Administration Lactated Ringer's 1,000 mls @ 70 mls/hr 10/24/24 09:20 10/26/24 10:35 Lr - Lactated Ringers Iv IV CONT 70 mls/hr .[id number] TAWANA Administration Ibuprofen 800 mg in 200 mls @ 400 mls/hr 10/24/24 12:52 10/25/24 08:11 Caldolor 800 Mg/200 Ml IVPB 400 mls/hr Q6H PRN Administration Pain Rated 1-3 Ondansetron HCl 4 mg 10/24/24 12:53 Ondansetron Inj 4 Mg/2 Ml Vial IV PUSH Q6H PRN Nausea And Vomiting Radiology Results: ITS Impressions Abdomen/Pelvis CT 10/24/24 08:34 IMPRESSION: 1. Acute diverticulitis with small perisigmoid abscess. No perforation. Labs Labs: Laboratory Results - last 24 hr 10/26/24 10/26/24 07:05 08:38 WBC 7.6 RBC 5.60 Hgb 17.3 Hct 52.1 H MCV 93.0 MCH 30.9 MCHC 33.2 RDW 12.6 Plt Count 321 MPV 9.2 Sodium 137 Potassium 3.9 Chloride 101 Carbon Dioxide 25 Anion Gap 11 BUN 9 Creatinine 0.87 Estim Creat Clear Calc 131 Estimated GFR > 60 Glucose 168 H Calcium 9.3 Total Bilirubin 1.5 H AST 40 ALT 49 Alkaline Phosphatase 55 Total Protein 8.0 Albumin 4.3
--- NOTE | 2024-10-26 14:58 | P.DS_ITS ---
DS: Admitting Diagnosis Discharge Date 10/26/2024 Admitting Diagnosis Diverticulitis with perisigmoid abscess DS: Discharge Diagnosis Discharge Diagnosis (1) Abscess of sigmoid colon due to diverticulitis: Code(s): K57.20 - Diverticulitis of large intestine with perforation and abscess without bleeding Status: Acute DS: Summary Hospital Course Reason for hospitalization: Diverticulitis with perisigmoid abscess Hospital Course: Patient was a 43-year-old male who initially presented to the emergency department due to complaints of abdominal pain was found to have diverticulitis with perisigmoid abscess with no perforation noted on CT scan. Patient also had mild leukocytosis denied any blood in stool but was not having any BMs or gas at time of admission. Patient was then admitted to the medical unit for further evaluation and treatment with a consult to surgery. Patient was started on IV ceftriaxone and Flagyl as well as IV fluids initially started on bowel rest. Patient was monitored daily and leukocytosis improved and returned to normal value he remained afebrile and blood cultures showed no growth to date. Patient's diet was then advanced as tolerated and he resumed having BMs as well as gas. Patient on day of discharge denied any nausea, vomiting, abdominal pain, fever chills and he was tolerating a low-fat diet. If that time patient was discharged home on oral antibiotics with instructions to continue a low fiber diet for 2 weeks then transition to high-fiber diet with a follow-up to surgery in 2 weeks. Patient was instructed if symptoms returned and he was no longer tolerating oral intake with severe abdominal pain fever chills to seek medical attention. patient was discharged home with which time they agreed and acknowledged discharge plan. Status at Discharge Functional status at discharge: independent ambulation Overall status at discharge: patient is back to baseline Time Spent with Patient Time attestation: Total time spent providing and/or coordinating discharge services: DS: Data Data Completed and Pending Labs on day of discharge: Labs from last 24 hours 10/26/24 10/26/24 08:38 07:05 WBC 7.6 RBC 5.60 Hgb 17.3 Hct 52.1 H MCV 93.0 MCH 30.9 MCHC 33.2 RDW 12.6 Plt Count 321 MPV 9.2 Sodium 137 Potassium 3.9 Chloride 101 Carbon Dioxide 25 Anion Gap 11 BUN 9 Creatinine 0.87 Estim Creat Clear Calc 131 Estimated GFR > 60 Glucose 168 H Calcium 9.3 Total Bilirubin 1.5 H AST 40 ALT 49 Alkaline Phosphatase 55 Total Protein 8.0 Albumin 4.3 Discharge Plan Discharge Attending physician on discharge: Cisco Fraga Consulting providers: Lloyd Mercado; Jonna Boyd; Sanjuana Srinivasan; Lito Singh V. Discharging Clinician: Rody Sanon Anticipated Discharge Date/Time: 10/26/24 14:52 Patient Disposition: Home, Self-Care Activity: as tolerated Diet: low fiber and other - see discharge instructions Discharge Instructions: * correspondence section supervisor and complete your antibiotics as prescribed * Continue low fiber diet x 2 weeks, then you can switch to a high fiber diet and should continue this moving forward. * If you develop abdominal pain, fever, or vomiting, then call the surgeon or return to the ER. * Follow-up with Dr. Mercado in the office in 2 weeks. Call to schedule an appointment. [phone] Patient Instructions: Antibiotic Form, High Fiber Diet (DC), Low Fiber Diet (DC) Patient Language: Uruguayan Stand Alone Forms: General Discharge Information Follow-up/Referrals: Lloyd Mercado, [Physician] - 2 Weeks Discharge Medications: New levofloxacin 750 mg tablet 750 mg PO DAILY Qty: 10 0RF metronidazole 500 mg tablet 500 mg PO Q8H Qty: 30 0RF Date of admission: 10/24/24 09:19 Primary Care Provider: UNKNOWN,DOCTOR Admitting Provider: Maribell Bashir Attending physician on admission: Rody Sanon Condition: Stable Quality VTE Prophylaxis VTE prophylaxis: mechanical ordered Hospitalist MIPS Heart Failure (Exclusion) Patient has history of Heart Transplant or Left Ventricular Assistive Device?: No IF YES, STOP HERE Heart Failure (Qualifier) Patient has current or prior documentation of LVEF less than or equal to 40%, or mod/servere depressed LVSF?: No IF NO, STOP HERE
[2024-10-26 15:01] VITALS: BP 180/122
[2024-10-26] MEDS: hydrALAZINE HCL 20 MG/ML VIAL IV PUSH (15:09)
[2024-10-26 15:11] VITALS: PULSE 84; RESP 18; TEMP 36.1; O2SAT 97
== END 2024-10-26 18:00 | disposition home or self-care (01) | DRG 392 ==
LOC: ANHED 09:18 → ANH3MEDSUR 10-25 07:54
PROVIDERS: Nurse Practitioner Family; Admitting Provider Family Medicine; Emergency Provider Emergency Medicine; Visit Provider Nurse Practitioner Family
DX: K57.20 Diverticulitis of large intestine with perforation and abscess without bleeding (principal); Z87.891 Personal history of nicotine dependence
CPT/HCPCS: 36415; 74177; 80048; 80053; 81001; 83690; 85025; 85027; 86140; 96361; 96365; 96368; 96375; 99285; J0360; J0696; J1171; J1741; J1836; J2405; J7030; J7120; Q9967

== ENCOUNTER 2025-01-04 02:13 | Day surgery (SDC) | payer BC, SELFPAY ==
[2024-12-28 09:36] VITALS: BMI 32.3
--- OUTSIDE RECORDS SUMMARY | 2025-01-04 02:15 | XMS_ITS | Clinical Summary ---
Author Organization [facility] Address [address] [place] [id number] Care Team Providers Care Grout Machine Operator Name Role Phone Unavailable Primary Care Provider [...]
[2025-01-04 06:37] VITALS: BP 171/113; PULSE 74; RESP 18; TEMP 36.4; O2SAT 98; BMI 34.3
[2025-01-04] MEDS: LACTATED RINGERS 1,000 ML 150 ML IV CONT (06:48)
--- NOTE | 2025-01-04 07:00 | SUR.PREOP ---
Dr. Trevino notified of patients hypertension, 175/125. Patient reports not taking any medications and no history of bottle selector. Received verbal orders to admin Hydralazing 5mg IVP.
[2025-01-04 07:24] VITALS: BP 161/107; PULSE 63
--- NOTE | 2025-01-04 07:24 | P.PNAN_ITS ---
Anes - Initial Pre Proc Eval Procedure: Operation Date: 01/04/25 08:00 Proposed Procedures p Colonoscopy - Lloyd Mercado DO Date/Time: 01/04/25 07:24 Surgeon: Lloyd Mercado DO Pre Op Diagnosis: diverticulitis with abscess Patient Data Age: 44 Gender: M Height: 1.85 m Weight: 118 kg Last Vital Signs Temp 36.4 C 01/04/25 06:37 Pulse 74 01/04/25 06:37 Resp 18 01/04/25 06:37 BP 171/113 H 01/04/25 06:37 Pulse Ox 98 01/04/25 06:37 O2 Del Method Room Air 01/04/25 06:37 Allergies Allergy/AdvReac Type Severity Reaction Status Date / Time Penicillins Allergy Mild Rash Verified 01/04/25 06:36 Home Medications ?Medication ?Instructions ?Recorded ?Confirmed ?Type No Home Medications 11/10/24 12/28/24 History Patient hx anesthesia problems: none Family hx anesthesia problems: none Results Review: All pre-operative results and documents have been reviewed as part of the pre- operative evaluation. [facility] Past Medical History Medical History Shingles Surgical History Surgical History History of vasectomy (~2010) Family History Family History Grandparent Cancer Social History Social History Smoking packs per day: 1 Smoking cigarettes per day: 20.0 Years smoked: 5 Smoking pack-years: 5.00 Smoking status: Former smoker Tobacco type: cigarettes Alcohol intake: current Drinks per week: 12 Substance use: never Substance use type: does not use Do You Feel Safe in your Home?: Yes Lack of Transportation: No Lack of Food: Never True Current Housing: I Have Housing Concerned About Future Housing: No Difficulty Paying Gas/Electric Bills: No Difficulty Paying for Meds: No Currently Unemployed: No Education: Associate Degree Difficulty w/ Childcare or Family Care: No Living arrangements: alone Spiritual care concerns: No Anes - Eval Final PreProcedure Day of Procedure 01/04/25 07:24 Patient weight: obese Heart: regular rate and rhythm Lungs: clear to auscultation Airway: Mallampati scale class II Neurological: alert and oriented Last oral intake: >/= 8 hours ASA classification: III Emergent: no Anesthetic plan: proceed Anesthesia type and monitoring: general ETT and standard monitoring Results Review: All pre-operative results and documents have been reviewed as part of the pre- operative evaluation. Informed Consent: The patient's anesthetic plan and its attendant risks and benefits were discussed with the patient/family/POA. Questions were solicited and answers provided to the satisfaction of the patient/family/POA.
[2025-01-04] MEDS: hydrALAZINE HCL 20 MG/ML VIAL 5 MG IV PUSH (07:27)
--- NOTE | 2025-01-04 07:29 | PM.IMHP ---
H&P: HPI History of Present Illness Date/Time: 01/04/25 07:29 Chief Complaint: Diverticulitis Narrative: This is a 44-year-old man who presents for colonoscopy. He was recently hospitalized for diverticulitis and has now recovered. The reports no other episodes of diverticulitis since October. He has never had a colonoscopy before. He denies family history of colon cancer. He denies any hematochezia or melena. Review of Systems Review of Systems: All systems reviewed & are unremarkable except as noted in HPI and below Constitutional: Constitutional: Denies chills, Denies fever(s), Denies headache(s) and Denies weight loss Eyes: Eyes: Denies change in vision ENT: Denies dizziness, Denies headache(s), Denies neck mass and Denies throat swelling Cardiovascular: Cardiovascular: Denies chest pain, Denies lightheadedness and Denies dyspnea Respiratory: Respiratory: Denies cough, Denies dyspnea and Denies wheezing Gastrointestinal: Gastrointestinal: Denies abdominal pain, Denies change in bowel habits, Denies nausea and Denies vomiting Genitourinary: Genitourinary: Denies hematuria and Denies dysuria Musculoskeletal: Musculoskeletal: Reports as per HPI Integumentary/Breasts: Skin/Breast: Reports as per HPI Neurologic: Denies dizziness and Denies headache(s) Allergic/Immunologic: Allergic/Immunologic: Denies throat swelling and Denies wheezing PMFSH Past Medical History Medical History Shingles Surgical History Surgical History History of vasectomy (~2010) Family History Family History Grandparent Cancer Social History Social History Smoking packs per day: 1 Smoking cigarettes per day: 20.0 Years smoked: 5 Smoking pack-years: 5.00 Smoking status: Former smoker Tobacco type: cigarettes Alcohol intake: current Drinks per week: 12 Substance use: never Substance use type: does not use Do You Feel Safe in your Home?: Yes Lack of Transportation: No Lack of Food: Never True Current Housing: I Have Housing Concerned About Future Housing: No Difficulty Paying Gas/Electric Bills: No Difficulty Paying for Meds: No Currently Unemployed: No Education: Associate Degree Difficulty w/ Childcare or Family Care: No Living arrangements: alone Spiritual care concerns: No Meds Home Medications and Allergies Home Medications ?Medication ?Instructions ?Recorded ?Confirmed ?Type No Home Medications 11/10/24 12/28/24 History Allergies Allergy/AdvReac Type Severity Reaction Status Date / Time Penicillins Allergy Mild Rash Verified 01/04/25 06:36 Vital Signs Vital Signs - 24 hr 01/04/25 06:37 01/04/25 07:24 Temperature 97.6 F Pulse Rate 74 63 Respiratory Rate 18 Blood Pressure 171/113 H 161/107 H Pulse Oximetry 98 Oxygen Delivery Room Air Exam Const: General: no acute distress and alert Orientation/consciousness: patient oriented x3 HENMT: Head: normocephalic and atraumatic Ears: hearing grossly normal bilaterally Face/Nose/Sinus: Normal nares present Mouth: Yes Normal oral and palatal mucosa present Eyes: Periorbital: periorbital findings normal Sclera: sclerae normal EOM: EOMs intact bilaterally Neck: Neck: normal visual inspection, no lymphadenopathy and trachea midline Chest: Chest palpation & inspection: normal inspection of the chest Resp: Effort & Inspection: normal respiratory effort Auscultation: clear to auscultation bilaterally Cardio: Jugular venous distension: no JVD Rate: regular rate Rhythm: regular rhythm Heart sounds: S1 normal heart sound present and S2 normal heart sound present Peripheral pulses: Peripheral pulses 2+ throughout GI: Inspection: normal to inspection GI Palp: Yes Soft to palpation, No Tenderness to palpation present (GI), No Guarding due to palpation present (GI) and No Rebound tenderness present Percussion: Yes normal to percussion Auscultation: normal bowel sounds : General: Yes no CVA tenderness Back/Spine/Pelvis: Back: no CVA tenderness Neuro: General: patient oriented x3, no focal motor deficits and CN's II-XI intact bilaterally Cognition (Neuro): normal cognition Speech: normal speech Motor exam (neuro): 5/5 motor strength present throughout Extrem: General: capillary refill normal and no clubbing, cyanosis or edema Assessment and Plan Assessment and plan (1) Diverticulitis of intestine with abscess: Qualifiers: Diverticulitis site: large intestine Diverticulitis bleeding: without bleeding Qualified Code(s): K57.20 - Diverticulitis of large intestine with perforation and abscess without bleeding Code(s): K57.80 - Diverticulitis of intestine, part unspecified, with perforation and abscess without bleeding Status: Acute Assessment and Plan: I have recommended colonoscopy. I have discussed the procedure, risks, benefits, and alternatives. Questions were answered. Patient is agreeable to proceed.
[2025-01-04 08:15] VITALS: BP 137/92; PULSE 62; RESP 18; O2SAT 96
[2025-01-04 08:25] VITALS: BP 133/91; PULSE 61; RESP 21; O2SAT 100
[2025-01-04 08:35] VITALS: BP 148/97; PULSE 58; RESP 21; O2SAT 100
--- NOTE | 2025-01-04 08:36 | SUR.PHASEII ---
patient stated only have high blood pressure in hospital settings . once i leave it will go down . been like that for 20 years . Patient was educated to check blood pressure when he gets home and given the physicians number to reach if he had any questions or concerns.
== END 2025-01-04 08:42 | disposition home or self-care (01) ==
PROVIDERS: Visit Provider Surgery
PROC: 0DJD8ZZ Inspection of Lower Intestinal Tract, Via Natural or Artificial Opening Endoscopic (ICD-10-PCS; CPT 45378; principal; 2025-01-04 08:00)
DX: K57.30 Diverticulosis of large intestine without perforation or abscess without bleeding (principal); Z87.19 Personal history of other diseases of the digestive system; Z87.891 Personal history of nicotine dependence
CPT/HCPCS: 45378; J0360; J2003; J2704; J7120